=== PATIENT | female | born 1950 | race Caucasian/White ===

== ENCOUNTER → 2016-11-25 | Outpatient (REF) | payer OTHER ==
[~2016-11-25] MED LIST: /ESOM40CA PO; /FENT25PA TD; /PANT40TA OR; /WARF3TA PO; ACET50TA PO; ACET65TA OR; ADVI200T PO; ALEV220C2 PO; AMIT PO; ASPI325T PO; ATIV1TAB2 OR; BISA10SU2 RE; BISA5TA OR; CELE20TA OR; CEPH2CAP PO; COLA50CA3 PO; COLC0.6T34 PO; CYMB1CAP PO; CYMB1CAP4 PO; DILA2TAB OR; FISH1000 OR; FLECTOR1.3 TD; FLEXERIL; LIDO5DIS EX; METF500T13 PO; MICR10CA PO; MILKSUS OR; MULTIVIT; NAPR500T OR; NEUR600T PO; NYST50SS SS; OMEP40CA2 PO; OSEL75CA PO; OXYC5CAP4 OR; PRED1TAB32 PO; PRED5TA PO; PRIL20CA OR; SIMV20TA2 PO; TOPR25TA PO; TRAM50TA2 PO; TYLE325T5 PO; VALI2TAB OR; VITMTA PO; XANA0.25 PO; ZITH500T PO; [UNRECOGNIZED DRUG - OTHER] PO; metanx OR
[2016-11-25 16:40] LABS: FREE T4 1.09 NG/DL (0.76-1.46); TOTAL PROTEIN 7.3 GM/DL (6.4-8.2)
[2016-11-26 12:52] LABS: ALBUMIN 3.91 GM/DL (3.29-5.55); ALBUMIN % 53.5 % (55.8-66.1); GAMMA GLOBULIN % 12.8 % (11.1-18.8)
== END ==
LOC: M LABDRAW1 15:34
PROVIDERS: ATTEND Psychiatry & Neurology Neurology
DX: I73.9 Peripheral vascular disease, unspecified (principal)

== ENCOUNTER → 2016-12-31 | Outpatient (REF) | payer OTHER | LOC: M LABNEURO 13:00 | PROVIDERS: ATTEND Psychiatry & Neurology Neurology | DX: Z00.00 Encounter for general adult medical examination without abnormal findings (principal) ==

== ENCOUNTER → 2017-02-12 | Outpatient (CLI) | payer OTHER ==
--- NOTE | 2017-02-14 10:13 | SLEEPCENT ---
DATE OF STUDY: 02/12/2017 ORDERED BY: Cornelia Noel Nocturnal polysomnography was performed due to concern for the obstructive sleep apnea syndrome in this patient with abnormal nocturnal recording oximetry. 7 hours and 33 minutes of data were reviewed. There were 354 minutes of sleep identified. Sleep latency was prolonged at 70 minutes. Rapid eye movement (REM) sleep was not achieved. Sleep architecture showed poor progression with fragmentation. Overall sleep efficiency was 79.9%. The patient's electrocardiogram (EKG) showed a sinus rhythm with a wandering baseline. Average heart rate 74 beats per minute. Rate ranged 50 to 90 beats per minute. Electroencephalogram (EEG) showed coarsening in background from alpha intrusion into non REM stages. There were 75 respiratory events identified of 10 seconds in duration or greater for an apnea-hypopnea index of 12.7. The events were primarily obstructive, not exclusive to sleep stage, more frequent but not exclusive to the supine posture. Arousals from respiratory events occurred 3 times per hour and oxygen desaturations were seen into the 70s. There was some limb activity identified. Frequent trains of events. Limb movement arousal index was borderline at 6.4. IMPRESSION: Obstructive sleep apnea syndrome (G47.33), apnea-hypopnea index 12.7. RECOMMENDATION: The patient should be encouraged to return to the sleep disorder center for pressure therapy. In the interim, alcohol and sedative avoidance should be practiced and caution exercised during the operation of motor vehicles.
== END ==
LOC: M SLEEP 19:27
PROVIDERS: ATTEND Nurse Practitioner Adult Health
DX: G47.33 Obstructive sleep apnea (adult) (pediatric) (principal)

== ENCOUNTER → 2017-03-15 | Outpatient (CLI) | payer OTHER | LOC: M SLEEP 20:00 | DX: G47.33 Obstructive sleep apnea (adult) (pediatric) (principal) ==

== ENCOUNTER 2018-07-20 12:51 | Emergency (ER) | payer OTHER ==
[~2018-07-20] VITALS: Ht 172.7 cm; Wt 77.3 kg
[~2018-07-20 12:51] MED LIST changes: -/ESOM40CA PO; -/FENT25PA TD; -/PANT40TA OR; -/WARF3TA PO; -ACET50TA PO; -AMIT PO; +AMIT1TAB PO; +COUM1TAB19 PO; +FENT1DIS14 TD; +MAPA500T17 PO; +METO-1 PO; +NEXI1CAP3 PO; +PROT1TAB2 OR; -TOPR25TA PO
[2018-07-20] MEDS ORDERED: LIDO1PAD (13:19)
[2018-07-20] MEDS ORDERED: ASPI81TA21 PO (13:19)
--- NOTE | 2018-07-20 14:45 | REP ---
RIGHT HIP SERIES: Four views right ribs are performed. There is no evidence of acute fracture or bone lesion. There appear to be mild linear fibroatelectatic changes in the lung bases. IMPRESSION: No evidence of right rib fracture. Electronically Signed by Edgar Bradley MD 07/20/2018 07:50 P
[2018-07-20 15:03] LABS: BASO # 0.1 10^3/uL (0.0-0.2); BASO % 0.5 % (0.0-1.0); EOS # 0.2 10^3/uL (0.0-0.50); EOS % 1.9 % (0.0-3.0); HEMATOCRIT 43.4 % (36.0-47.0); HEMOGLOBIN 13.6 g/dl (12.0-15.5); LYMPH # 2.4 10^3/uL (1.5-4.5); LYMPH % 25.7 % (24.0-44.0); MEAN CORPUSCULAR HEMOGLOBIN 28.4 pg (27.0-33.0); MEAN CORPUSCULAR HGB CONC 31.3 g/dl (32.0-36.5); MEAN CORPUSCULAR VOLUME 90.6 fl (80.0-96.0); MONO # 0.6 10^3/uL (0.0-0.8); MONO % 6.8 % (0.0-5.0); NEUTROPHILS # 5.9 10^3/uL (1.8-7.7); NEUTROPHILS % 64.6 % (36.0-66.0); PLATELET COUNT, AUTOMATED 244 10^3/uL (150-450); RED BLOOD COUNT 4.79 10^6/uL (4.00-5.40); WHITE BLOOD COUNT 9.2 10^3/uL (4.0-10.0)
--- NOTE | 2018-07-20 15:14 | REP ---
CT CHEST WITHOUT IV CONTRAST: CT chest performed without IV contrast. Sagittal and coronal reconstruction images are performed. There is no acute infiltrate. There are bibasilar fibroatelectatic changes. Azygos lobe is seen superiorly on the right. The heart is not enlarged. No axillary or mediastinal adenopathy is seen. There is no thoracic aortic aneurysm with mild atherosclerotic calcification. There is no pleural or pericardial effusion. There is a large hiatal hernia. The patient had a prior cholecystectomy. There are mild degenerative changes of the spine. There is a nondisplaced fracture of the right anterior 6th rib. IMPRESSION: Bibasilar fibroatelectatic changes in the lungs. Large hiatal hernia. There is a nondisplaced fracture of the right anterior 6th rib. Electronically Signed by Edgar Bradley MD 07/20/2018 03:38 P
[2018-07-20 15:36] LABS: BLOOD UREA NITROGEN 6 MG/DL (7-18); CALCIUM LEVEL 9.2 MG/DL (8.8-10.2); CARBON DIOXIDE LEVEL 27 MEQ/L (21-32); CHLORIDE LEVEL 105 MEQ/L (98-107); CK-MB VALUE MASS < 1.0 NG/ML (<3.6); CPK CREATINE PHOSPHOKINASE 42 U/L (26-192); CREATININE FOR GFR 0.66 MG/DL (0.55-1.30); GLOMERULAR FILTRATION RATE > 60.0 (>45); GLUCOSE, FASTING 95 MG/DL (70-100); MB/CK RELATIVE INDEX 2.38 (< OR =4); POTASSIUM SERUM 4.3 MEQ/L (3.5-5.1); SODIUM LEVEL 139 MEQ/L (136-145); TROPONIN I < 0.02 NG/ML (< 0.10)
[2018-07-20] MEDS ORDERED: KETOROLAC 30 MG/ML VIAL (J1885) IM ONE (15:45)
[2018-07-20 16:06] VITALS: BP 140/73
[2018-07-20] MEDS ORDERED: KETO10TAB PO (16:07)
--- NOTE | 2018-07-20 23:57 | ECGEPIP ---
Stationary ECG Study [facility] - ED Test Date: 2018-07-20 Pat Name: LAWRENCE MCCOY Department: Room: - Gender: F [employer]: TC : [id number] Requested By: Bill Lawrence Order Number: [id number] Reading MD: Cristian Melo Measurements Intervals [place] Rate: 83 P: 36 MS: 160 QRS: 3 QRSD: 93 T: -17 QT: 359 QTc: 424 Interpretive Statements SINUS RHYTHM ST-T wave abnormalities- possible ischemia- subtly changed from tracing done Low QRS complex voltage in the limb leads Electronically Signed On 07-20-2018 23:57:01 EDT by Cristian Melo
== END 2018-07-20 16:32 | disposition home or self-care (01) ==
LOC: M ED 12:51
DX: S22.31XA Fracture of one rib, right side, initial encounter for closed fracture (principal); X58.XXXA Exposure to other specified factors, initial encounter; Y92.9 Unspecified place or not applicable; Y93.89 Activity, other specified; Y99.9 Unspecified external cause status; K44.9 Diaphragmatic hernia without obstruction or gangrene; R91.8 Other nonspecific abnormal finding of lung field; G61.0 Guillain-Barre syndrome; Z79.82 Long term (current) use of aspirin; Z79.899 Other long term (current) drug therapy; Z88.5 Allergy status to narcotic agent; Z88.8 Allergy status to other drugs, medicaments and biological substances
CPT/HCPCS: 36415; 71100; 71250; 80048; 82550; 82553; 84484; 85025; 93005; 96374; 99284; J1885

== ENCOUNTER → 2020-01-04 | Outpatient (CLI) | payer OTHER ==
[~2020-01-04] MED LIST changes: +ASPI81TA21 PO; +KETO10TAB PO; +LIDO1PAD; -SIMV20TA2 PO; +SIMV20TA22 PO
--- NOTE | 2020-01-06 10:42 | SLEEPHOME ---
DATE: 01/04/2020 ORDERED BY: Cornelia Noel Diagnostic home sleep testing was performed for re-evaluation of this patient with a prior history of obstructive sleep apnea syndrome. For testing, a nocturnal T3 respiratory monitoring device was used. Continuous record was made of pulse, oxygen saturation, air flow, chest and abdominal strain, and body position. There was 9 hours and 59 minutes of data reviewed. There was 7 hours and 10 minutes marked as time in bed. During the interval marked time in bed, there were 40 respiratory events identified of 10 seconds in duration or greater for a respiratory event index of 5.6. The events were primarily obstructive, not exclusive to sleep position. Baseline pulse rate 63. Pulse rate ranged 57-83. Baseline saturation 92%. Saturations fell to 86%. Testing was performed in both the supine and nonsupine positions. IMPRESSION: Abnormal home sleep testing with repetitive respiratory events and oxygen desaturations to 86% with a respiratory event index of 5.6 is consistent with the obstructive sleep apnea syndrome. RECOMMENDATION: The patient should be considered for more formal sleep evaluation and continuation of pressure therapy. MTDD
== END ==
LOC: M SLEEP HO 10:55
PROVIDERS: ATTEND Nurse Practitioner Adult Health
DX: G47.33 Obstructive sleep apnea (adult) (pediatric) (principal)

== ENCOUNTER 2020-08-12 15:46 | Observation (INO) | payer OTHER ==
[~2020-08-12] VITALS: Ht 172.7 cm; Wt 76.0 kg
[2020-08-12] MEDS ORDERED: AMPICILLIN SOD/SULBACTAM SOD 3 GM in D5W MINI-BAG PLUS 100 ML IV ONE (16:45)
--- NOTE | 2020-08-12 16:54 | REP ---
INDICATION: DYSPNEA/COUGH. COMPARISON: Comparison chest x-ray July 20, 2018. TECHNIQUE: Portable upright AP chest radiograph. FINDINGS: EKG monitoring electrodes are seen. There is evidence of a fairly large hiatal hernia again noted. Heart is at the upper range of normal in size. There is linear fibrosis in the right base unchanged. Pleural angles are sharp. No acute infiltrate is appreciated.. There is an azygos venous lobe again noted. IMPRESSION: Large hiatal hernia. Right base linear fibrosis. Otherwise no acute disease.. <Electronically signed by Thanh Christensen > 08/12/20 [id number]
[2020-08-12 16:56] LABS: BASO # 0.1 10^3/uL (0.0-0.2); BASO % 0.6 % (0.0-1.0); EOS # 0.2 10^3/uL (0.0-0.5); EOS % 1.7 % (0.0-3.0); HEMATOCRIT 31.1 % (36.0-47.0); HEMOGLOBIN 9.2 g/dl (12.0-15.5); MEAN CORPUSCULAR HEMOGLOBIN 22.5 pg (27.0-33.0); MEAN CORPUSCULAR HGB CONC 29.6 g/dl (32.0-36.5); MEAN CORPUSCULAR VOLUME 76.2 fl (80.0-96.0); MONO # 0.8 10^3/uL (0.0-0.8); MONO % 7.7 % (2.0-8.0); NEUTROPHILS # 6.5 10^3/uL (1.5-8.5); NEUTROPHILS % 61.1 % (36.0-66.0); PLATELET COUNT, AUTOMATED 300 10^3/uL (150-450); RED BLOOD COUNT 4.08 10^6/uL (4.00-5.40); WHITE BLOOD COUNT 10.7 10^3/uL (4.0-10.0)
[2020-08-12 17:20] LABS: ERYTHROCYTE SEDIMENTATION RATE 67 mm/hr (0-30)
[2020-08-12 17:26] LABS: ALBUMIN 2.8 GM/DL (3.2-5.2); ALT/SGPT 22 U/L (12-78); BILIRUBIN,DIRECT 0.2 MG/DL (0.0-0.2); BILIRUBIN,TOTAL 0.4 MG/DL (0.2-1.0); BLOOD UREA NITROGEN 11 MG/DL (7-18); C REACTIVE PROTEIN QUANTITATIV 6.41 MG/DL (0.00-0.30); CALCIUM LEVEL 8.5 MG/DL (8.8-10.2); CARBON DIOXIDE LEVEL 24 MEQ/L (21-32); CHLORIDE LEVEL 107 MEQ/L (98-107); CK-MB VALUE MASS < 1.0 NG/ML (<3.6); CPK CREATINE PHOSPHOKINASE 45 U/L (26-192); CREATININE FOR GFR 0.65 MG/DL (0.55-1.30); GLOMERULAR FILTRATION RATE > 60.0 (>45); GLUCOSE, FASTING 112 MG/DL (70-100); MB/CK RELATIVE INDEX 2.22 (< OR =4); NT-PRO BNP 3584 PG/ML (<125); POTASSIUM SERUM 3.5 MEQ/L (3.5-5.1); SODIUM LEVEL 138 MEQ/L (136-145); THYROXINE (T4) 11.5 UG/DL (4.5-12.0); TOTAL PROTEIN 6.6 GM/DL (6.4-8.2); TROPONIN I 0.03 NG/ML (< 0.10)
[2020-08-12] MEDS ORDERED: ISOVUE-370 76% 100ML VIAL As Ordered ONE (17:46)
--- NOTE | 2020-08-12 18:51 | REPVR ---
PROCEDURE INFORMATION: Exam: CT Head Without Contrast Exam date and time: 08/12/2020 6:05 PM Age: 69 years old Clinical indication: Other: Headache TECHNIQUE: Imaging protocol: Computed tomography of the head without contrast. Radiation optimization: All CT scans at this facility use at least one of these dose optimization techniques: automated exposure control; mA and/or kV adjustment per patient size (includes targeted exams where dose is matched to clinical indication); or iterative reconstruction. COMPARISON: No relevant prior studies available. FINDINGS: Brain: There is no evidence of intracranial bleed. There is no evidence of mass effect. 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 Correlation with an MRI with contrast might be considered. Paranasal sinuses: There is a small mucous retention cyst right maxillary sinus. There is a small area of mucosal thickening right ethmoid sinus. Mastoid air cells: Mastoid air cells appear clear. Orbital cavity: Symmetric orbits. Vasculature: There is some calcification of carotid siphon. Bones/joints: There is no evidence of fracture. The there is no evidence of fracture. Soft tissues: There is no evidence of soft tissue swelling IMPRESSION: The lateral ventricles merge /communicate in the midline. 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 Suggest correlation with MRI scan with contrast. Electronically signed by: Lenny Hallman On 08/12/2020 18:50:43 PM
[2020-08-12] MEDS ORDERED: AMIT50TA PO (19:06)
[2020-08-12] MEDS ORDERED: METO1TAB7 PO (19:06)
[2020-08-12] MEDS ORDERED: ASPI81TA26 PO (19:06)
[2020-08-12] MEDS ORDERED: OMEP-221 PO (19:06)
[2020-08-12] MEDS ORDERED: ONDA-83 PO (19:08)
[2020-08-12] MEDS ORDERED: CLIN300C6 PO (19:08)
[2020-08-12] MEDS ORDERED: OXYC1TAB23 PO (19:08)
[2020-08-12] MEDS ORDERED: INDO-16 PO (19:11)
--- NOTE | 2020-08-12 19:15 | REPVR ---
PROCEDURE INFORMATION: Exam: CT Maxillofacial Without Contrast Exam date and time: 08/12/2020 6:14 PM Age: 69 years old Clinical indication: Other: Swelling? Abscess TECHNIQUE: Imaging protocol: Computed tomography images of the face without contrast. Radiation optimization: All CT scans at this facility use at least one of these dose optimization techniques: automated exposure control; mA and/or kV adjustment per patient size (includes targeted exams where dose is matched to clinical indication); or iterative reconstruction. COMPARISON: CT Head without contrast 08/12/2020 6:05 PM FINDINGS: Orbital cavity: Symmetric appearing orbits. Bones/joints: There is no evidence of destructive change of bone. Paranasal sinuses: There is moderate posterior osteophyte formation C4-C5 there is mucosal thickening and mucous retention cyst formation in the inferior aspect of the right maxillary sinus. Soft tissues: There is prominent soft tissue swelling along the right anterolateral portion of the maxilla along with a 8 mm bubble of air. This probably represents an area of infection and possibly early or small abscess Submandibular/Parotid glands: Symmetric parotid glands. Symmetric submandibular glands. Lymph nodes: There are 2 lymph nodes at the right submandibular gland measuring 1 cm each. There is a 2 cm x 1.4 cm lymph node right posterior triangle region. Oropharynx: Normal appearing oropharynx. Other findings: Normal size you will a. Normal appearing hypopharynx. IMPRESSION: Prominent area of soft tissue swelling and thickening along the anterolateral aspect of the right side of the maxilla. 8 mm bubble of air and this is all consistent with infection and possibly small abscess. Mucosal thickening inferior right maxillary sinus. 2 cm x 1.4 cm enlarged lymph node right posterior triangle region. Electronically signed by: Lenny Hallman On 08/12/2020 19:14:51 PM
[2020-08-12] MEDS ORDERED: ONDANSETRON 4MG/2ML VIAL IV ONE (20:25)
[2020-08-12] MEDS ORDERED: MORPHINE 4 MG/ML 1ML VIAL/SYRINGE (J2270) IV PRN (20:25)
[2020-08-12] MEDS ORDERED: dexameTHASONE 20MG/5ML VIAL (J1100 PER 1MG) IV ONE (20:35)
[2020-08-12] MEDS ORDERED: MOM 30ML SUSPENSION UDC PO PRN (21:25)
[2020-08-12] MEDS ORDERED: MAALOX 30 ML SUSP *UDC PO PRN (21:25)
[2020-08-12] MEDS ORDERED: ACETAMINOPHEN TAB 650MG DOSE (2X325MG) PO PRN (21:25)
--- NOTE | 2020-08-12 21:26 | HPEPDOC ---
[facility] Medical History & Physical Date of Admission Aug 12, 2020 Date of Service: Aug 12, 2020 Attending Physician: TYRONE MORENO MD History and Physical TIME OF SERVICE: 1020am CHIEF COMPLAINT: facial swelling HISTORY OF PRESENT ILLNESS: On Friday developed a headache that was not typical o her usual headaches so she went to the ER in [place]. She was given pain meds and sent home. On Friday she returned to the ER in [place] had some tests done and was sent home again. I do not have access to the reports so I am not sure what diagnosis she was given prior to discharge. She returned to the ER in [place] again on Friday because the headache was worse, and she had developed swelling at the right temporal area; she was diagnosed with what sounds like an odontal abscess and transferred to a hospital in [place] for evaluation by an Oral surgeon; during her admission she was told that she has sepsis and was started on IVF & Unasyn. Her course was complicated by fluid o verload with a 20lb weight gain that was managed with Lasix. Unfortunately vascular access was difficult to maintain for unclear reasons a PICC line could not be placed. There were discussions about placing a central line or port a cath to continue the IV abx but on Friday she was discharged home with oral Clindamycin. She took 4 doses of the Clindamycin but today the right sided facial pain and swelling reoccurred so she came here. She has also noticed that the vision in her right eye is blurry. discussed her case with who recommended admission and oral abx. 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 HOME MEDICATIONS: Please see below. PHYSICAL EXAMINATION: Vital Signs Date Time Temp Pulse Resp B/P (MAP) Pulse Ox O2 Delivery O2 Flow Rate FiO2 08/12/20 15:46 98.0 101 17 135/63 (87) 94 Room Air 08/12/20 22:45 2.0 GENERAL APPEARANCE: well nourished and developed/ anxious HEENT: no scleral icterus CARDIOVASCULAR: RRR/NMRG LUNGS: CTAB on RA MUSCULOSKELETAL: there is mild swelling at the right temporal area / WILLIAM x 4 extremities INTEGUMENT: not flushed pale or diaphoretic NEUROLOGICAL: speech not dysarthric PSYCHIATRIC: A & Ox 3 /able to understand and follow all commands LABORATORY DATA: Immature Granulocyte % (Auto) 0.9, Neutrophils (%) (Auto) 61.1, Lymphocytes (%) (Auto) 28.0, Monocytes (%) (Auto) 7.7, Eosinophils (%) (Auto) 1.7, Basophils (%) (Auto) 0.6, Neutrophils # (Auto) 6.5, Lymphocytes # (Auto) 3.0, Monocytes # (Auto) 0.8, Eosinophils # (Auto) 0.2, Basophils # (Auto) 0.1, Nucleated Red B lood Cells % (auto) 0.0, Erythrocyte Sedimentation Rate 67H, Anion Gap 7L, Glomerular Filtration Rate > 60.0, Calcium Level 8.5L, Total Bilirubin 0.4, Direct Bilirubin 0.2, Aspartate Amino Transf (AST/SGOT) 40H, Alanine Aminotransferase (ALT/SGPT) 22, Alkaline Phosphatase 111, Total Creatine Kinase 45, Creatine Kinase MB < 1.0, Creatine Kinase MB Relative Index 2.22, Troponin I 0.03, C-Reactive Protein, Quantitative 6.41H, HL-Cdf-Z-Type Natriuretic Peptide 3584H, Total Protein 6.6, Albumin 2.8L, Albumin/Globulin Ratio 0.7L, Thyroid Stimulating Hormone (TSH) 2.400, Thyroxine (T4) 11.5 08/12/20 17:21: Lactic Acid Level 1.6 IMAGING: Chest xray IMPRESSION: Large hiatal hernia. Right base linear fibrosis. Otherwise no acute disease CT head IMPRESSION: The lateral ventricles merge /communicate in the midline. 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 Suggest lesa elation with MRI scan with contrast. CT maxillofacial IMPRESSION: Prominent area of soft tissue swelling and thickening along the anterolateral aspect of the right side of the maxilla. 8 mm bubble of air and this is all consistent with infection and possibly small abscess. Mucosal thickening inferior right maxillary sinus. 2 cm x 1.4 cm enlarged lymph node right posterior triangle region. MICROBIOLOGY: respiratory panel neg ASSESSMENT: Ms. Hopkins is a 69 yr old w NIDDM, bilateral hand and foot neuropathy (ambulates with a cane), HFpEF / essential HTN, Paroxysmal A Fib, Mild Pulm HTN, GERD, & DANE with periodic limb movement disorder who is admitted primarily for management of a right maxilla abscess. PLAN: 1 Right sided maxilla abscess She currently doesnt have SIRS Plan: admit to medical floor / CLD / per , who discussed the case with , recommended Unasyn and Decadron and planned to see her on an out patient basis but because she has had multiple hospital visits and is very anxious I will ask the day time team to ask to see the patient during this admission / request records from [facility] 2 Right maxillary sinusitis Plan: abx as above [address] May be due to the infection but because this a fairly large we should also consider malignancy Plan: once the infection has resolved the patient can follow up with her PCP to confirm that this has resolved or if she needs excisional biopsy to r/o lymphoma 3 Right sided blurry vision The CT scans were negative for any acute process Plan: because of her history of Ruth Mao syndrome I will ask the day time team to consult Ophthalmology [address] L[address] V[address] Merger on CT ? Plan: f/u MRI of brain 5 Microcytic anemia Plan: f/u iron studies and stool occult 6 NIDDM Plan: low sugar diet / f/u accuchecks / hypoglycemia protocol / sliding scale insulin / hold oral anti-glycemic / f/u A1C (target A1C is <7 to 6.5%) 7 Neuropathy (ambulates with a cane) Plan: Amitriptyline 8 HFpEF / essential HTN Plan: Metoprolol 9 Paroxysmal A Fib Her CHADSVASC2 score is 4. She is not on a DOAC. Her Echo from 2013 didnt mention rheumatic heart dz Plan: Metoprolol /start apixaban 10 Hx of recurrent Pericarditis Plan: Indomethacin 11 GERD Plan: PPI 12 DANE Plan: based on old sleep study results CPAP with 5cm H20 13 Suspected Depression She is very anxious and teary and bases on previous consultation notes the same mood was noted. She has been through a lot and may have PTSD from various hospital stays. Fortunately her son flew up from [place] to support her Plan: f/u with PCP to discuss CBT and or anti-depressant DVT Px n/a on DOAC Dispo: home possibly after less than 2 midnights stay Laboratory Data CBC/BMP Laboratory Tests 08/12/20 16:45 Microbiology Microbiology 08/12/20 Blood Culture, Received Pending 08/12/20 Blood Culture, Received Pending Home Medications Scheduled Amitriptyline HCl (Amitriptyline HCl) 50 Mg Tablet, 50 MG PO QHS Aspirin (Aspirin EC) 81 Mg Tablet.dr, 81 MG PO DAILY Clindamycin HCl (Clindamycin HCl) 300 Mg Capsule, 300 MG PO Q6H started 08/11/20 x 8 days Indomethacin (Indomethacin) 25 Mg Capsule, 25 MG PO TID WITH MEALS Metformin HCl (Metformin HCl) 500 Mg Tab, 1,000 MG PO BID Metoprolol Succinate (Metoprolol Succinate) 50 Mg Tab.er.24h, 50 MG PO QHS Omeprazole (Omeprazole) 40 Mg Capsule.dr, 40 MG PO DAILY Simvastatin (Simvastatin) 20 Mg Tab, 20 MG PO Q2D BEDTIME Scheduled PRN Ondansetron HCl (Ondansetron HCl) 4 Mg Tablet, 4 MG PO TID PRN for NAUSEA OR VOMITING Oxycodone HCl/Acetaminophen (Oxycodone-Acetaminophen 5-325) 1 Each Tablet, 1 TAB PO Q6H PRN for PAIN Allergies Coded Allergies: albuterol (Verified Allergy, Unknown, EKG changes, 07/20/18) amantadine (Verified Allergy, Unknown, anaphlytic, 07/20/18) hydromorphone (Verified Allergy, Unknown, anaphlatic, 07/20/18) oxycodone (Verified Allergy, Unknown, hives, 07/20/18) prochlorperazine (Verified Allergy, Unknown, anaphylatic, 07/20/18) Oeyntlg-Kug-Jzj Reductase Inhibitor (Verified Adverse Reaction, Unknown, side effects, 07/20/18) TYRONE MORENO MD Aug 12, 2020 21:26
[2020-08-12 21:44] LABS: RSV AMPLIFICATION NEGATIVE (NEGATIVE)
[2020-08-12 22:43] LABS: FERRITIN 50 NG/ML (8-252); IRON (FE) 22 UG/DL (50-170); PERCENT SATURATION 6.8 % (13.2-45.0); TOTAL IRON BINDING CAPACITY 323 UG/DL (250-450)
[2020-08-12 22:55] VITALS: BP 156/81
[2020-08-12] MEDS ORDERED: ONDANSETRON 4 MG TAB PO PRN (23:00)
[2020-08-12] MEDS ORDERED: PERCOCET 5MG/325MG TAB PO PRN (23:00)
[2020-08-12] MEDS: AMITRIPTYLINE 50 MG TAB PO SCH (23:29)
[2020-08-12] MEDS: METOPROLOL SUCC (TopROL XL) 50MG **XL** TAB PO SCH (23:29)
[2020-08-13] MEDS: APIXABAN 5 MG TAB (ELIQUIS) PO SCH ×3 (02:40→21:55)
[2020-08-13] MEDS: INDOMETHACIN 25 MG CAP PO SCH ×4 (02:41→17:16)
[2020-08-13] MEDS: AMPICILLIN SOD/SULBACTAM SOD 3 GM in D5W MINI-BAG PLUS 100 ML IV SCH ×2 (02:41→08:26)
[2020-08-13 06:00] VITALS: BP 130/67
[2020-08-13 06:07] LABS: HEMATOCRIT 28.5 % (36.0-47.0); HEMOGLOBIN 8.3 g/dl (12.0-15.5); MEAN CORPUSCULAR HEMOGLOBIN 22.3 pg (27.0-33.0); MEAN CORPUSCULAR HGB CONC 29.1 g/dl (32.0-36.5); MEAN CORPUSCULAR VOLUME 76.4 fl (80.0-96.0); PLATELET COUNT, AUTOMATED 245 10^3/uL (150-450); RED BLOOD COUNT 3.73 10^6/uL (4.00-5.40); WHITE BLOOD COUNT 7.6 10^3/uL (4.0-10.0)
[2020-08-13 06:26] LABS: BLOOD UREA NITROGEN 11 MG/DL (7-18); CALCIUM LEVEL 8.5 MG/DL (8.8-10.2); CARBON DIOXIDE LEVEL 22 MEQ/L (21-32); CHLORIDE LEVEL 105 MEQ/L (98-107); CREATININE FOR GFR 0.54 MG/DL (0.55-1.30); GLOMERULAR FILTRATION RATE > 60.0 (>45); GLUCOSE, FASTING 193 MG/DL (70-100); POTASSIUM SERUM 4.3 MEQ/L (3.5-5.1); SODIUM LEVEL 137 MEQ/L (136-145)
--- NOTE | 2020-08-13 08:20 | ED PDOC ---
Post-Departure Follow-Up radiology rpeor tfaxed to lj Bright Sarah MD Aug 13, 2020 08:20
[2020-08-13] MEDS: ASPIRIN 81MG ENTERIC TABLET PO SCH (08:24)
[2020-08-13] MEDS: OMEPRAZOLE 20 MG CAP PO SCH (08:25)
[2020-08-13] MEDS ORDERED: dexameTHASONE 4 MG/ML 1ML VIAL (J1100 PER 1MG) IV SCH (09:00)
[2020-08-13] MEDS ORDERED: PROHANCE 279.3MG/ML 15ML VIAL As Ordered ONE (12:12)
[2020-08-13] MEDS: AUGMENTIN 875 MG TAB PO SCH ×2 (13:03→21:55)
--- NOTE | 2020-08-13 13:44 | IPNPDOC ---
Text Note Date of Service The patient was seen on 08/13/20. NOTE Hospitalist Progress Note Subjective: It appears the patient has had quite a complicated course over the last few days or week having been seen at multiple institutions all of them seemingly providing her with a different plan/course of action. She seems frustrated and confused, justifiably so. On examination today she reports that her right face is significantly improved, she is almost surprised by how much her swelling has improved, and by how little pain she has. Something that do not believe was mentioned in the H&P is that while traveling [place] she had a bump in the road and then apparently drained quite a bit of fluid into her mouth, probably pus. This would explain the discrepancy between how she was diagnosed with an abscess requiring surgical intervention in [employer] versus her CT scan upon arrival here only showing a prominent area of soft tissue swelling and thickening along the anterior lateral aspect of the right side of the maxilla with an 8 mm bubble of air. It is likely that she had an abscess that drained on its own en route to [place]. Per her story it appears that she has responded exceptionally well to Unasyn, and then for an unknown reason she was discharged home on clindamycin which was ineffective, and she had recurrence of her infection. Due to outpatient failure of antibiotic treatment is reasonable as she came to [place] for further evaluation. Objective: General: Awake, alert, oriented 3. Not in any acute distress. HEENT: Head normocephalic, atraumatic, sclera are nonicteric. Hearing is grossly intact to conversation. She does have some mild swelling, and perhaps very mild/trace erythema on the right zygoma. This is tender to palpation, but I cannot appreciate any fluid collection. Upon inspection of the mouth, she does have okay dentition, several teeth have caps on them. I do not see any draining sinus tract, I suspect that she may have drained the pus via one of the teeth. Respiratory: Clear to auscultation bilaterally with no wheezes, rales, or rhonchi. Cardiovascular: Regular rate and rhythm, with no rubs, gallops, or murmur. Abdomen: Soft, nontender, nondistended, no hepatosplenomegaly appreciated. Bowel sounds present. Extremities: 2+ pulses in the radial and dorsalis pedis bilaterally. No evidence of clubbing or cyanosis. 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 Nevertheless did discuss the case with Dr. Seay. We agree that if she has responded well to Unasyn, then a more appropriate oral antibiotic would be Augmentin. She has shown more or less some clinical improvement even in the last 24 hours while on Unasyn. Will discontinue Unasyn today and start her on Augmentin. If she continues to do this well over the next 24 hours, then we will anticipate discharge with very close follow-up with Dr. Seay in his office. He recommends even seeing her the afternoon of her discharge (if possible), or the following day as he suspects that she may need a tooth pulled. VS,Fishbone, I+O VS, Fishbone, I+O Laboratory Tests 08/12/20 16:45 08/13/20 05:47 Vital Signs Date Time Temp Pulse Resp B/P (MAP) Pulse Ox O2 Delivery O2 Flow Rate FiO2 08/13/20 06:00 97.4 68 18 130/67 (88) 100 Nasal Cannula 2.0 I&O- Last 24 Hours up to 6 AM 08/13/20 06:00 Intake Total 345 ml Output Total 0 ml Balance 345 ml CHRISTOPHER LOUISE DO Aug 13, 2020 13:44
--- NOTE | 2020-08-13 13:58 | REPVR ---
PROCEDURE INFORMATION: Exam: MR Head Without and With Contrast Exam date and time: 08/13/2020 12:25 PM Age: 69 years old Clinical indication: Abnormal findings; Abnormal radiologic findings of head/skull; Not specified; Patient HX: Recommended from CT; Additional info: F/u on communicating lateral ventricles TECHNIQUE: Imaging protocol: MR of the head without and with intravenous contrast. Contrast material: PROHANCE; Contrast volume: 15 ml; Contrast route: INTRAVENOUS (IV); COMPARISON: CT Head without contrast 08/12/2020 6:05 PM FINDINGS: Brain: Examination of the brain parenchyma demonstrates normal morphology and signal intensity on all the pulse sequences. No acute infarction, masses or hemorrhage is seen. No acute intracranial abnormality is identified. There is no abnormal diffusion weighted signal intensity to suggest an acute ischemic event. There is mild diffuse cerebral atrophy present, consistent with this patient's age. Cerebral ventricles: There is moderate dilatation of the lateral ventricles. The septum pellucidum is not well visualized and the lateral ventricles appear to communicate in the midline. This was also noted on the prior CT scan. This could be secondary to congenital absence versus a markedly hypoplastic septum pellucidum. There is no agenesis of the corpus callosum which is well visualized on the sagittal T1 weighted images. The 3rd and 4th ventricles are normal in caliber. Bones/joints: Unremarkable. Paranasal sinuses: Normal as visualized. No acute sinusitis. Mastoid air cells: Normal as visualized. No mastoid effusion. Orbital cavity: Unremarkable. Soft tissues: Unremarkable. IMPRESSION: 1. No acute infarction, masses or hemorrhage is seen. No acute intracranial abnormality is identified. 2. There is moderate dilatation of the lateral ventricles. The septum pellucidum is not well visualized and the lateral ventricles appear to communicate in the midline. This was also noted on the prior CT scan. This could be secondary to congenital absence versus a markedly hypoplastic septum pellucidum. There is no agenesis of the corpus callosum which is well visualized on the sagittal T1 weighted images. The 3rd and 4th ventricles are normal in caliber. 3. The ventricular enlargement seems out of proportion to the degree of cortical atrophy, raising the suspicion for normal pressure hydrocephalus . Correlate clinically for classic triad of NPH of ataxia, incontinence, and dementia. Electronically signed by: Sanjay Peters On 08/13/2020 13:57:39 PM
[2020-08-13 14:00] VITALS: BP 138/73
[2020-08-13] MEDS ORDERED: GLUCAGON INJ 1MG VIAL SC PRN (14:20)
[2020-08-13] MEDS ORDERED: GLUCOSE 4GM CHEW TABLET PO PRN (14:20)
[2020-08-13] MEDS ORDERED: DEXTROSE 50% 50 ML SYRINGE IV PRN (14:20)
[2020-08-13] MEDS: HumaLOG INSULIN (NovoLOG) PER UNIT SC SCH (17:16)
[2020-08-13] MEDS ORDERED: HumaLOG INSULIN (NovoLOG) PER UNIT SC SCH (21:00)
[2020-08-13] MEDS ORDERED: SIMVASTATIN 20 MG TAB PO SCH (21:00)
[2020-08-13] MEDS: AMITRIPTYLINE 50 MG TAB PO SCH (21:55)
[2020-08-13 21:56] VITALS: BP 145/84
[2020-08-13] MEDS: METOPROLOL SUCC (TopROL XL) 50MG **XL** TAB PO SCH (21:56)
[2020-08-13 22:00] VITALS: BP 145/84
[2020-08-14 06:00] VITALS: BP 132/71
[2020-08-14] MEDS: APIXABAN 5 MG TAB (ELIQUIS) PO SCH (08:27)
[2020-08-14] MEDS: ASPIRIN 81MG ENTERIC TABLET PO SCH (08:27)
[2020-08-14] MEDS: OMEPRAZOLE 20 MG CAP PO SCH (08:27)
[2020-08-14] MEDS: HumaLOG INSULIN (NovoLOG) PER UNIT SC SCH ×2 (08:27→12:00)
[2020-08-14] MEDS: AUGMENTIN 875 MG TAB PO SCH (08:28)
[2020-08-14] MEDS: INDOMETHACIN 25 MG CAP PO SCH (08:28)
[2020-08-14] MEDS ORDERED: DEXA2TA PO (08:30)
[2020-08-14] MEDS ORDERED: AMOX875T2 PO (08:30)
[2020-08-14 11:01] LABS: FOLATE 16.4 NG/ML (>5.4); VITAMIN B12 LEVEL 224 PG/ML (247-911)
--- NOTE | 2020-08-14 16:19 | DS.PDOC ---
Discharge Summary General Date of Admission Aug 12, 2020 at 15:47 Date of Discharge 08/14/2020 Discharge Summary PRIMARY CARE PHYSICIAN: Velma Bright ATTENDING AT TIME OF DISCHARGE: Dr. 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 Apparently she has been seen and evaluated in both [facility] and [place]. Apparently she had an abscess in the right maxillary region and recommendation to be seen by oral/maxillofacial surgeon, as well as ENT was recommended. Apparently she responded well inpatient to Unasyn, and then for some reason was discharged home on clindamycin with recommendation to follow up with the specialists as listed. Clindamycin though was ineffective, and she had return of significant pain, swelling, inflammation in the right maxillary region. She therefore came to [facility] ED because we have both the specialties available. Upon arrival here a maxillofacial CT however did not demonstrate any abscess, but what appears to be cellulitis versus soft tissue inflammation, and a small air bubble underneath the right maxilla. The patient mentions that when she was en route to [facility] she had a bump in the road, and apparently drained quite a bit of pus into her mouth. It is suspected that she did indeed have an abscess previously, however this drained spontaneously prior to arrival. She was given Unasyn and Decadron on admission, and within 24 hours showed remarkable improvement. She was switched over to Augmentin, and her dose of Decadron was tapered, and she continues to do quite well. She therefore does appear to be stable and ready for discharge at this time, strongly recommend that she follow-up with oral maxillofacial surgeon either this afternoon or tomorrow as she likely will need a tooth pulled. PHYSICAL EXAMINATION ON DISCHARGE: GENERAL: Awake, alert, oriented 3. CARDIOVASCULAR EXAMINATION: Regular rate and rhythm, with no rubs, gallops, or murmur. RESPIRATORY EXAMINATION: Clear to auscultation bilaterally with no wheezes, rales, or rhonchi. ABDOMINAL EXAMINATION: Soft, nontender, nondistended. Bowel sounds present. EXTREMITIES: No clubbing or edema noted. 2+ pulses in the radial bilaterally. DISPOSITION: Home DISCHARGE INSTRUCTIONS: Follow-up with oral maxillofacial surgeon either today or tomorrow. Follow-up w [facility] PCP within 7-10 days. Diet as tolerated. Activity as tolerated. If symptoms return, or if you experience worsening of your symptoms, please call your doctor or return to the emergency department. DISCHARGE MEDICATIONS: Continue taking from home: No change in home medications New Medications: Augmentin 875-125 one tablet by mouth twice a day for 7 days Dexamethasone 2 mg by mouth daily for 5 days Vital Signs/I&Os Vital Signs Date Time Temp Pulse Resp B/P (MAP) Pulse Ox O2 Delivery O2 Flow Rate FiO2 08/14/20 06:00 97.8 73 18 132/71 (91) 96 Room Air 08/13/20 06:00 2.0 I&O- Last 24 Hours up to 6 AM 08/14/20 06:00 Intake Total 920 ml Output Total 1400 ml Balance -480 ml Laboratory Data Labs 24H Laboratory Tests 2 08/13/20 16:44: Bedside Glucose (Misc Panel) 175H 08/13/20 20:40: Bedside Glucose (Misc Panel) 198H 08/14/20 06:21: Bedside Glucose (Misc Panel) 136H FSBS Laboratory Tests Test 08/13/20 16:44 08/13/20 20:40 08/14/20 06:21 Range/Units Bedside Glucose (Misc Panel) 175 198 136 80-115 MG/DL Microbiology Microbiology 08/12/20 Blood Culture - Preliminary, Resulted No growth after 24 hours . All specim... 08/12/20 Blood Culture - Preliminary, Resulted No growth after 24 hours . All specim... Discharge Medications Scheduled Amitriptyline HCl (Amitriptyline HCl) 50 Mg Tablet, 50 MG PO QHS, (Reported) Amoxicillin/Potassium Clav (Amox-Clav 875-125 mg Tablet) 1 Each Tablet, 875 MG PO BID Aspirin (Aspirin EC) 81 Mg Tablet.dr, 81 MG PO DAILY, (Reported) Dexamethasone (Dexamethasone) 2 Mg Tablet, 2 MG PO DAILY Indomethacin (Indomethacin) 25 Mg Capsule, 25 MG PO TID, (Reported) WITH MEALS Metformin HCl (Metformin HCl) 500 Mg Tab, 1,000 MG PO BID, (Reported) Metoprolol Succinate (Metoprolol Succinate) 50 Mg Tab.er.24h, 50 MG PO QHS, (Reported) Omeprazole (Omeprazole) 40 Mg Capsule.dr, 40 MG PO DAILY, (Reported) Simvastatin (Simvastatin) 20 Mg Tab, 20 MG PO Q2D, (Reported) BEDTIME Scheduled PRN Ondansetron HCl (Ondansetron HCl) 4 Mg Tablet, 4 MG PO TID PRN for NAUSEA OR VOMITING, (Reported) Oxycodone HCl/Acetaminophen (Oxycodone-Acetaminophen 5-325) 1 Each Tablet, 1 TAB PO Q6H PRN for PAIN, (Reported) Allergies Coded Allergies: albuterol (Verified Allergy, Unknown, EKG changes, 07/20/18) amantadine (Verified Allergy, Unknown, anaphlytic, 07/20/18) hydromorphone (Verified Allergy, Unknown, anaphlatic, 07/20/18) oxycodone (Verified Allergy, Unknown, hives, 07/20/18) prochlorperazine (Verified Allergy, Unknown, anaphylatic, 07/20/18) Krrvnih-Zue-Xub Reductase Inhibitor (Verified Adverse Reaction, Unknown, side effects, 07/20/18) CHRISTOPHER LOUISE 14, 2021 16:19
--- NOTE | 2020-08-14 16:39 | ECGEPIP ---
[facility] - ED Test Date: 2020-08-12 Pat Name: LAWRENCE MCCOY Department: Room: - Gender: Female Loan Documentation Specialist: SMILEY : 1950 Requested By: Claudia Bains Order Number: [id number] Reading MD: Claudia Bains Measurements Intervals [place]cock Rate: 96 P: 3 AK: 116 QRS: 9 QRSD: 88 T: -76 QT: 368 QTc: 464 Interpretive Statements Normal sinus rhythm ST & T wave abnormality, consider anterolateral ischemia increased rate 07/20/18 Electronically Signed on 08-14-2020 16:38:51 EDT by Claudia Bains
== END 2020-08-14 12:45 | disposition home or self-care (01) ==
LOC: M ED 15:46 → M ED INP 15:47 → ENRESERV 21:51 → M MSPAV 22:55
PROVIDERS: ADMIT Internal Medicine; ATTEND Neuromusculoskeletal Medicine & OMM
DX: J01.00 Acute maxillary sinusitis, unspecified (principal); K12.2 Cellulitis and abscess of mouth; R59.9 Enlarged lymph nodes, unspecified; I61.5 Nontraumatic intracerebral hemorrhage, intraventricular; D50.8 Other iron deficiency anemias; E11.40 Type 2 diabetes mellitus with diabetic neuropathy, unspecified; K21.9 Gastro-esophageal reflux disease without esophagitis; G47.33 Obstructive sleep apnea (adult) (pediatric); F32.9 Major depressive disorder, single episode, unspecified; Z79.82 Long term (current) use of aspirin; Z88.5 Allergy status to narcotic agent; Z88.8 Allergy status to other drugs, medicaments and biological substances; Z79.899 Other long term (current) drug therapy; R26.9 Unspecified abnormalities of gait and mobility
CPT/HCPCS: 36415; 70450; 70486; 70553; 71045; 80048; 80076; 82550; 82553; 82607; 82728; 82746; 83550; 83605; 83880; 84436; 84443; 84484; 85025; 85027; 85652; 86140; 87040; 87631; 93005; 93041; 94760; 96365; 96366; 96375; 96376; 99285; A9576; J1100; J2270; J2405; Q9967

== ENCOUNTER → 2020-12-21 | Outpatient (CLI) | payer OTHER ==
[~2020-12-21] MED LIST changes: +AMIT50TA PO; +AMOX875T2 PO; +ASPI81TA26 PO; +CLIN-250 PO; +DEXA2TA PO; +INDO-16 PO; +METO1TAB7 PO; +OMEP-221 PO; +ONDA-83 PO; +OXYC1TAB23 PO
--- NOTE | 2020-12-22 02:22 | REP ---
INDICATION: SHORTNESS OF BREATH COMPARISON: 08/12/2020 TECHNIQUE: PA and lateral. FINDINGS: The mediastinum and cardiac silhouette are normal. The lung rodgers are clear and without acute consolidation, effusion, or pneumothorax. Lateral view demonstrates few areas of linear scarring. The skeletal structures are intact and normal. IMPRESSION: No acute cardiopulmonary process. <Electronically signed by Rome Alvarado > 12/22/20 0210
== END ==
LOC: M PLAIMG 15:50
PROVIDERS: ATTEND Nurse Practitioner Adult Health
DX: R06.02 Shortness of breath (principal)

== ENCOUNTER → 2022-07-11 | Outpatient (CLI) | payer OTHER, MEDICARE ==
[~2022-07-11] MED LIST changes: +BACT800T5 PO; +E-Z-GAS II EFFERVESCENT PACKET (SODIUM BICARB./CITRIC ACID/SIMETHICONE) As Ordered ONE; +E-Z-HD 98% w/w 340GM SUSP BTL As Ordered ONE; +E-Z-PAQUE 96% w/w SUSP 176GM BTL As Ordered ONE; +FERR325T3 PO; +METF500T13; -OMEP-221 PO; +OMEP40CA5 PO; +ONDA-83; +PANT40TA29; +REGL10TA6 PO
== END ==
LOC: M RAD 07:48
PROVIDERS: ATTEND Surgery
DX: K44.9 Diaphragmatic hernia without obstruction or gangrene (principal); K21.9 Gastro-esophageal reflux disease without esophagitis; R10.9 Unspecified abdominal pain

== ENCOUNTER → 2022-07-18 | Outpatient (CLI) | payer OTHER, MEDICARE ==
[~2022-07-18] MED LIST changes: -BACT800T5 PO; -E-Z-GAS II EFFERVESCENT PACKET (SODIUM BICARB./CITRIC ACID/SIMETHICONE) As Ordered ONE; -E-Z-HD 98% w/w 340GM SUSP BTL As Ordered ONE; -E-Z-PAQUE 96% w/w SUSP 176GM BTL As Ordered ONE; +GASTROGRAFIN SOLUTION 30ML As Ordered ONE; +ISOVUE-370 76% 100ML VIAL As Ordered ONE; -METF500T13
== END ==
LOC: M RAD 08:45
PROVIDERS: ATTEND Surgery
DX: K21.9 Gastro-esophageal reflux disease without esophagitis (principal); K44.9 Diaphragmatic hernia without obstruction or gangrene; R10.9 Unspecified abdominal pain; Z90.49 Acquired absence of other specified parts of digestive tract
CPT/HCPCS: 74160; Q9963

== ENCOUNTER → 2023-01-08 | Outpatient (CLI) | payer OTHER, MEDICARE ==
[~2023-01-08] MED LIST changes: +BACT800T5 PO; -GASTROGRAFIN SOLUTION 30ML As Ordered ONE; -ISOVUE-370 76% 100ML VIAL As Ordered ONE; +METF500T13
== END ==
LOC: M RAD 07:39
PROVIDERS: ATTEND Physician Assistant
DX: R10.9 Unspecified abdominal pain (principal); R14.0 Abdominal distension (gaseous)
CPT/HCPCS: 78264; A9541

== ENCOUNTER → 2023-01-31 | Outpatient (CLI) | payer OTHER | LOC: M RAD 12:11 | PROVIDERS: ATTEND Physician Assistant | DX: Z53.9 Procedure and treatment not carried out, unspecified reason (principal); D50.9 Iron deficiency anemia, unspecified ==

== ENCOUNTER → 2023-05-13 | Outpatient (CLI) | payer OTHER, MEDICARE ==
[~2023-05-13] MED LIST changes: +ERGO500029; +GASTROGRAFIN SOLUTION 30ML As Ordered ONE; +ISOVUE-370 76% 100ML VIAL As Ordered ONE; +LACT10SO; +LEVO25TA5; +LEXA1TAB; +METF10004 PO; +VITA500C24 PO
== END ==
LOC: M RAD 08:06
PROVIDERS: ATTEND Physician Assistant
DX: R14.0 Abdominal distension (gaseous) (principal); R19.8 Other specified symptoms and signs involving the digestive system and abdomen
CPT/HCPCS: 74177; Q9963; Q9967

== ENCOUNTER 2023-06-02 11:06 | Outpatient (CLI) | payer OTHER, MEDICARE ==
[~2023-06-02] VITALS: Ht 172.7 cm; Wt 64.0 kg
[~2023-06-02 11:06] MED LIST changes: -GASTROGRAFIN SOLUTION 30ML As Ordered ONE; -ISOVUE-370 76% 100ML VIAL As Ordered ONE; +PLEC3TAB PO
[2023-06-02 11:30] VITALS: BP 122/57; O2SAT 98
[2023-06-02] MEDS: ACETAMINOPHEN TAB 650MG DOSE (2X325MG) PO ONE (11:46)
[2023-06-02] MEDS: diphenhydrAMINE 25MG CAP PO ONE (11:46)
[2023-06-02] MEDS: IRON SUCROSE 300 MG in NS 250 ML OVER 90 MIN. IV ONE (12:10)
[2023-06-02 13:57] VITALS: BP 121/56; O2SAT 97
== END 2023-06-02 14:00 | disposition home or self-care (01) ==
LOC: M INFU 11:06
PROVIDERS: ATTEND Specialist
DX: D50.9 Iron deficiency anemia, unspecified (principal); Z88.5 Allergy status to narcotic agent; Z88.8 Allergy status to other drugs, medicaments and biological substances
CPT/HCPCS: 96365; 96366; J1756

== ENCOUNTER 2023-06-11 12:25 | Outpatient (CLI) | payer OTHER, MEDICARE ==
[~2023-06-11] VITALS: Ht 165.1 cm; Wt 67.0 kg
[2023-06-11 12:30] VITALS: BP 125/57; O2SAT 100
[2023-06-11] MEDS: diphenhydrAMINE 25MG CAP PO ONE (12:38)
[2023-06-11] MEDS: ACETAMINOPHEN TAB 650MG DOSE (2X325MG) PO ONE (12:38)
[2023-06-11] MEDS: IRON SUCROSE 300 MG in NS 250 ML OVER 90 MIN. IV ONE (12:39)
[2023-06-11 14:39] VITALS: BP 138/62; O2SAT 96
== END 2023-06-11 14:45 ==
LOC: M INFU 12:25
PROVIDERS: ATTEND Specialist
DX: D50.9 Iron deficiency anemia, unspecified (principal); Z88.5 Allergy status to narcotic agent; Z88.8 Allergy status to other drugs, medicaments and biological substances
CPT/HCPCS: 96365; 96366; J1756

== ENCOUNTER → 2024-11-23 | Outpatient (CLI) | payer MEDICARE, OTHER | LOC: M RAD 06:51 | PROVIDERS: ATTEND Physician Assistant | DX: K74.60 Unspecified cirrhosis of liver (principal) ==

== ENCOUNTER → 2024-12-10 | Outpatient (CLI) | payer MEDICARE, OTHER ==
[~2024-12-10] MED LIST changes: +ISOVUE-370 76% 100 ML VIAL As Ordered ONE
== END ==
LOC: M RAD 16:48
PROVIDERS: ATTEND Student in an Organized Health Care Education/Training Program
DX: R22.1 Localized swelling, mass and lump, neck (principal); R13.10 Dysphagia, unspecified; R49.0 Dysphonia; R05.3 Chronic cough
CPT/HCPCS: 70491; Q9967

== ENCOUNTER → 2024-12-13 | Outpatient (CLI) | payer OTHER ==
[~2024-12-13] MED LIST changes: +BARIUM SULFATE 700 MG TABLET As Ordered ONE; +E-Z-PAQUE 96% w/w SUSP 176 GM BTL As Ordered ONE; -ISOVUE-370 76% 100 ML VIAL As Ordered ONE; +VARIBAR NECTAR 40% w/v 240ML SUSP BTL As Ordered ONE; +VARIBAR PUDDING 40% w/v 230ML TUBE As Ordered ONE
== END ==
LOC: M RAD 12:21
PROVIDERS: ATTEND Internal Medicine Gastroenterology
DX: R09.89 Other specified symptoms and signs involving the circulatory and respiratory systems (principal)